=== PATIENT | male | born 1970 | race Caucasian/White ===

== ENCOUNTER 2023-01-22 16:20 | Emergency (ER) | payer OTHER ==
[2023-01-22 16:35] VITALS: BP 138/87
--- NOTE | 2023-01-22 17:12 | XRAY Report ---
PROCEDURE: Chest 2 View X-Ray INDICATIONS: cough TECHNIQUE: 2 views of the chest were acquired. COMPARISON: None. FINDINGS: Surgical changes and devices: None. Lungs and pleura: No pleural effusions or pneumothorax. Lungs are clear. Mediastinum: Mediastinal contours appear normal. Heart size is normal. Bones and chest wall: No suspicious bony lesions. Overlying soft tissues appear unremarkable. IMPRESSION: No acute cardiopulmonary process. Reviewed by: Lisa Ballesteros MD on 01/22/2023 5:10 PM PDT Approved by: Lisa Ballesteros MD on 01/22/2023 5:10 PM PDT Station ID: [id number]
--- NOTE | 2023-01-22 17:44 | ED Physician Documentation ---
History of Present Illness - Stated complaint Stated Complaint: SOA - Chief complaint Chief Complaint: Resp - History obtained from History obtained from: Patient - Additonal information Additional information: 52-year-old gentleman with history of [place] War syndrome, fibromyalgia, and type 2 diabetes presents for evaluation of cough and chest pain. He has been sick for about 10 days. It was not too bad the first few days but now is worse over the last week or so with some shortness of breath and sharp pain to the right of the sternum especially when he coughs. The cough is nonproductive. Has had low-grade fevers with this. Denies pedal edema or calf pain. PD PAST MEDICAL HISTORY - Past Medical History Cardiovascular: None Respiratory: None Endocrine/Autoimmune: Type 2 diabetes GI: GERD : None HEENT: None Derm: None - Past Surgical History Past Surgical History: No - Present Medications Home Medications: Ambulatory Orders Medication Instructions Recorded Confirmed Aripiprazole [Abilify] 10 mg PO DAILY 05/14/13 05/14/13 Buprenorphine HCl/Naloxone HCl 1 each SL 3-4XD 05/14/13 05/14/13 [Suboxone 8 mg-2 mg Tablet Sl] Glipizide [Glipizide ER] 10 mg PO BID 05/14/13 05/14/13 Metformin HCl [Metformin HCl ER] 1,000 mg PO BID 05/14/13 05/14/13 Venlafaxine [Effexor] 300 mg PO DAILY 05/14/13 05/14/13 Albuterol Sulf [Ventolin Hfa 1 - 2 puffs INH Q4HR PRN #1 each 01/22/23 Inhaler] Doxycycline [Vibramycin] 100 mg PO BID #14 tablet 01/22/23 - Allergies Allergies/Adverse Reactions: Allergies Allergy/AdvReac Type Severity Reaction Status Date / Time No Known Drug Allergies Allergy Verified 01/22/23 16:25 - Social History Does the pt smoke?: Yes Smoking Status: Current every day smoker Does the pt drink ETOH?: Yes Does the pt have substance abuse?: No - Immunizations Immunizations are current?: Yes PD ED PE NORMAL - Vitals Vital signs reviewed: Yes - General General: Alert and oriented X 3, No acute distress - HEENT HEENT: PERRL, EOMI - Neck Neck: Supple, no meningeal sign, No bony TTP - Cardiac Cardiac: RRR, No murmur - Respiratory Respiratory: No respiratory distress, Other (Mild expiratory wheezes, nonlabored, speaking in full sentences) - Abdomen Abdomen: Non tender - Back Back: No CVA TTP, No spinal TTP - Derm Derm: Normal color, Warm and dry - Extremities Extremities: No edema, No calf tenderness / cord - Neuro Neuro: Alert and oriented X 3, Normal speech Results - Vitals Vitals: Vital Signs - 24 hr 01/22/23 16:26 Temperature 36.9 C Heart Rate 82 Respiratory 19 Rate Blood Pressure 138/87 H O2 Saturation 100 Oxygen O2 Source Room air - EKG (time done) 1648 EKG releavant findings:: EKG personally interpreted by author of this note. Relevant findings are: Rate: Other (Sinus rhythm with right bundle branch block and very small inferior Q waves. The right bundle branch block is new compared with prior EKG, the small Q waves look like they are probably old.) Computer interpretation: Agree with computer PD Medical Decision Making - ED course ED course: 52-year-old gentleman with bronchitis. No evidence of active heart disease, nothing in the history or physical to suggest dissection, PE, or other more serious cause of chest pain. Departure - Departure Disposition: 01 Home, Self Care Clinical Impression: Bronchitis Condition: Good Record reviewed to determine appropriate education?: Yes Instructions: ED Upper Resp Infec Abx Tx Prescriptions: Albuterol Sulf [Ventolin Hfa Inhaler] 1 - 2 puffs INH Q4HR PRN #1 each PRN Reason: Shortness Of Air/Wheezing Doxycycline [Vibramycin] 100 mg PO BID #14 tablet Comments: Chest x-ray looking normal. Your EKG did show a finding on it called a right bundle branch block. We know this is new in the last 10 years or so and it should definitely be mentioned to your primary care physician, but I do not see how it would be related to your current symptoms. Call your doctor to arrange a follow-up appointment, make the next available appointment. In the interim, return anytime if worse or if new symptoms develop.
== END 2023-01-22 17:59 | disposition home or self-care (01) ==
LOC: ED 16:20
DX: J40 Bronchitis, not specified as acute or chronic (principal); F17.200 Nicotine dependence, unspecified, uncomplicated; E11.9 Type 2 diabetes mellitus without complications; Z79.84 Long term (current) use of oral hypoglycemic drugs; Z79.899 Other long term (current) drug therapy
CPT/HCPCS: 93005; 99283; 99284

== ENCOUNTER 2023-01-27 07:35 | Outpatient (CLI) | payer OTHER ==
[2023-01-27 14:53] LABS: BASOPHILS % (AUTO) 0.3 %; EOSINOPHILS # (AUTO) 0.1 10^3/uL (0.0-0.7); HCT - HEMATOCRIT 45.7 % (42.0-52.0); LYMPHOCYTES # (AUTO) 3.1 10^3/uL (1.5-3.5); LYMPHOCYTES % (AUTO) 40.3 %; MEAN CORPUSCULAR HEMOGLOBIN 27.6 pg (27.0-31.0); MEAN CORPUSCULAR HGB CONC 30.6 g/dL (32.0-36.0); MEAN CORPUSCULAR VOLUME 90.1 fL (80.0-94.0); MEAN PLATELET VOLUME 8.7 fL (7.4-11.4); MONOCYTES # (AUTO) 0.6 10^3/uL (0.0-1.0); MONOCYTES % (AUTO) 7.4 %; NEUTROPHILS # (AUTO) 3.9 10^3/uL (1.5-6.6); NEUTROPHILS % (AUTO) 50.7 %; PLT - PLATELET COUNT 405 10^3/uL (130-450); RED BLOOD COUNT 5.07 10^6/uL (4.70-6.10); WHITE BLOOD COUNT 7.7 x10^3/uL (4.8-10.8)
[2023-01-27 15:36] LABS: ALBUMIN 4.5 g/dL (3.2-5.5); ALBUMIN/GLOBULIN RATIO 1.5 (1.0-2.2); ALKALINE PHOSPHATASE 72 IU/L (42-121); ALT ALANINE AMINOTRANSFERASE 12 IU/L (10-60); AST ASPARTATE AMINOTRANSFERASE 15 IU/L (10-42); BILIRUBIN,TOTAL 0.5 mg/dL (0.2-1.0); BUN - BLOOD UREA NITROGEN 18 mg/dL (6-20); CALCIUM 9.7 mg/dL (8.5-10.3); CARBON DIOXIDE - CO2 31 mmol/L (21-32); CHLORIDE 104 mmol/L (101-111); CHOL/HDL RATIO 3.2 (<5.0); CHOLESTEROL 199 mg/dL; CREATININE 0.8 mg/dL (0.6-1.3); GFR - MDRD 102 (>89); GLUCOSE 212 mg/dL (74-104); HDL CHOLESTEROL 63 mg/dL; LDL CHOLESTEROL,CALCULATED 104 mg/dL; LDL/HDL RATIO 1.7 (<3.6); POTASSIUM 3.9 mmol/L (3.5-4.5); SODIUM 139 mmol/L (135-145); TOTAL PROTEIN 7.5 g/dL (6.4-8.9); TRIGLYCERIDES 159 mg/dL (48-352); VLDL CHOLESTEROL 32 mg/dL
[2023-01-27 16:53] LABS: THYROID STIMULATING HORMONE 0.65 uIU/mL (0.34-5.60)
[2023-01-27 20:09] LABS: ESTIMATED AVERAGE GLUCOSE 148 mg/dL (70-100); HEMOGLOBIN A1c% 6.8 % (4.27-6.07)
== END 2023-01-27 07:36 | disposition home or self-care (01) ==
LOC: LAB.S 07:35
PROVIDERS: ATTEND Nurse Practitioner
DX: I10 Essential (primary) hypertension (principal); E78.5 Hyperlipidemia, unspecified; E11.9 Type 2 diabetes mellitus without complications; Z12.5 Encounter for screening for malignant neoplasm of prostate; R53.83 Other fatigue
CPT/HCPCS: 36415; 80053; 80061; 82043; 82570; 83036; 83721; 84153; 84443; 85025

== ENCOUNTER 2023-05-07 09:06 | Outpatient (CLI) | payer OTHER ==
[2023-05-07 14:42] LABS: BASOPHILS # (AUTO) 0.1 10^3/uL (0.0-0.1); BASOPHILS % (AUTO) 0.8 %; EOSINOPHILS # (AUTO) 0.4 10^3/uL (0.0-0.7); EOSINOPHILS % (AUTO) 5.8 %; HCT - HEMATOCRIT 46.4 % (42.0-52.0); HGB - HEMOGLOBIN 14.2 g/dL (14.0-18.0); LYMPHOCYTES # (AUTO) 2.3 10^3/uL (1.5-3.5); LYMPHOCYTES % (AUTO) 35.1 %; MEAN CORPUSCULAR HGB CONC 30.6 g/dL (32.0-36.0); MEAN CORPUSCULAR VOLUME 91.5 fL (80.0-94.0); MEAN PLATELET VOLUME 8.6 fL (7.4-11.4); MONOCYTES # (AUTO) 0.5 10^3/uL (0.0-1.0); MONOCYTES % (AUTO) 7.9 %; NEUTROPHILS # (AUTO) 3.2 10^3/uL (1.5-6.6); NEUTROPHILS % (AUTO) 50.2 %; PLT - PLATELET COUNT 400 10^3/uL (130-450); RED BLOOD COUNT 5.07 10^6/uL (4.70-6.10); RED CELL DISTRIBUTION WIDTH 12.9 % (12.0-15.0); WHITE BLOOD COUNT 6.4 x10^3/uL (4.8-10.8)
[2023-05-07 15:06] LABS: CREATININE,URINE 113.9 mg/dL; MICROALBUM/CREATININE RATIO,UR 363.5 ug/mg (<30.0); MICROALBUMIN,URINE 41.4 mg/dL
[2023-05-07 15:10] LABS: ALBUMIN 4.4 g/dL (3.2-5.5); ALBUMIN/GLOBULIN RATIO 1.6 (1.0-2.2); ALKALINE PHOSPHATASE 87 IU/L (42-121); ALT ALANINE AMINOTRANSFERASE 16 IU/L (10-60); AMYLASE 54 U/L (28-100); AST ASPARTATE AMINOTRANSFERASE 20 IU/L (10-42); BILIRUBIN,TOTAL 0.3 mg/dL (0.2-1.0); BUN - BLOOD UREA NITROGEN 10 mg/dL (6-20); CALCIUM 9.8 mg/dL (8.5-10.3); CARBON DIOXIDE - CO2 31 mmol/L (21-32); CHLORIDE 107 mmol/L (101-111); CREATININE 0.7 mg/dL (0.6-1.3); CRP - C-REACTIVE PROTEIN < 0.5 mg/dL (<0.5); GFR - MDRD 118 (>89); GLUCOSE 125 mg/dL (74-104); LIPASE 46 U/L (11-82); POTASSIUM 4.8 mmol/L (3.5-4.5); SODIUM 143 mmol/L (135-145); TOTAL PROTEIN 7.2 g/dL (6.4-8.9)
[2023-05-07 15:31] LABS: ESTIMATED AVERAGE GLUCOSE 131 mg/dL (70-100); HEMOGLOBIN A1c% 6.2 % (4.27-6.07)
[2023-05-11 08:10] LABS: HCV RNA QUANTITATION HCV Not Detected IU/mL (.)
== END 2023-05-07 09:07 | disposition home or self-care (01) ==
LOC: LAB.S 09:06
PROVIDERS: ATTEND Nurse Practitioner
DX: R50.9 Fever, unspecified (principal); R10.13 Epigastric pain; E11.9 Type 2 diabetes mellitus without complications; R41.3 Other amnesia; M25.50 Pain in unspecified joint
CPT/HCPCS: 36415; 80053; 81599; 82043; 82150; 82570; 83036; 83690; 84443; 85025; 85651; 86140; 86480; 87522

== ENCOUNTER 2024-02-19 01:04 | Emergency (ER) | payer OTHER ==
[2024-02-19 01:35] LABS: BASOPHILS % (AUTO) 0.3 %; EOSINOPHILS % (AUTO) 0.3 %; HGB - HEMOGLOBIN 13.9 g/dL (14.0-18.0); LYMPHOCYTES # (AUTO) 1.1 10^3/uL (1.5-3.5); LYMPHOCYTES % (AUTO) 9.4 %; MEAN CORPUSCULAR HEMOGLOBIN 28.3 pg (27.0-31.0); MEAN CORPUSCULAR HGB CONC 32.3 g/dL (32.0-36.0); MEAN CORPUSCULAR VOLUME 87.4 fL (80.0-94.0); MEAN PLATELET VOLUME 8.2 fL (7.4-11.4); MONOCYTES # (AUTO) 0.2 10^3/uL (0.0-1.0); MONOCYTES % (AUTO) 1.9 %; NEUTROPHILS # (AUTO) 10.2 10^3/uL (1.5-6.6); NEUTROPHILS % (AUTO) 87.7 %; PLT - PLATELET COUNT 379 10^3/uL (130-450); RED BLOOD COUNT 4.92 10^6/uL (4.70-6.10); WHITE BLOOD COUNT 11.7 x10^3/uL (4.8-10.8)
--- NOTE | 2024-02-19 01:45 | XRAY Report ---
PROCEDURE: Chest 1V INDICATIONS: Chest pain TECHNIQUE: One view of the chest was acquired. COMPARISON: 01/14/2023. FINDINGS: Surgical changes and devices: None. Lungs and pleura: No pleural effusions or pneumothorax. Lungs are clear. Mediastinum: Mediastinal contours appear normal. Heart size is normal. Bones and chest wall: No suspicious bony lesions. Overlying soft tissues appear unremarkable. IMPRESSION: No acute cardiopulmonary process. Reviewed by: Jose Agarwal MD on 02/19/2024 1:43 AM PDT Approved by: Jose Agarwal MD on 02/19/2024 1:43 AM PDT Station ID: [id number]
--- NOTE | 2024-02-19 01:58 | ED Physician Documentation ---
PD HPI CHEST PAIN - Stated complaint Stated Complaint: SOA CHEST PAIN - Chief complaint Chief Complaint: Abd Pain - History obtained from History obtained from: Patient - Additional information Additional information: HPI from patient. Patient complains of nausea without vomiting, chest tightness. The symptoms started earlier today without an inciting event. There are no apparent exacerbating or ameliorating factors. He denies history of similar symptoms. He also notes shortness of breath with dyspnea on exertion over the past few days. Denies fever, cough, leg swelling. He also says he has not had a bowel movement in several days but does not have the urge to defecate. Review of Systems Constitutional: denies: Fever, Chills, Sweats Cardiac: reports: Chest pain / pressure. denies: Palpitations, Pedal edema, Calf pain Respiratory: reports: Dyspnea. denies: Cough, Hemoptysis, Wheezing GI: reports: Nausea. denies: Vomiting PD PAST MEDICAL HISTORY - Past Medical History Past Medical History: Yes Cardiovascular: Hypertension Respiratory: None Endocrine/Autoimmune: Type 2 diabetes GI: GERD : None HEENT: None Derm: None - Past Surgical History Past Surgical History: No - Present Medications Home Medications: Ambulatory Orders Medication Instructions Recorded Confirmed Aripiprazole [Abilify] 10 mg PO DAILY 05/14/13 05/14/13 Buprenorphine HCl/Naloxone HCl 1 each SL 3-4XD 05/14/13 05/14/13 [Suboxone 8 mg-2 mg Tablet Sl] Metformin HCl [Metformin HCl ER] 1,000 mg PO BID 05/14/13 05/14/13 Venlafaxine [Effexor] 300 mg PO DAILY 05/14/13 05/14/13 glipiZIDE [Glipizide ER] 10 mg PO BID 05/14/13 05/14/13 Albuterol Sulf [Ventolin Hfa 1 - 2 puffs INH Q4HR PRN #1 each 01/22/23 Inhaler] Doxycycline [Vibramycin] 100 mg PO BID #14 tablet 01/22/23 Promethazine [Phenergan] 25 mg PO Q6H PRN #10 tab 02/19/24 - Allergies Allergies/Adverse Reactions: Allergies Allergy/AdvReac Type Severity Reaction Status Date / Time No Known Drug Allergies Allergy Verified 02/19/24 01:18 - Social History Does the pt smoke?: Yes Smoking Status: Current every day smoker Does the pt drink ETOH?: Yes Does the pt have substance abuse?: No - Immunizations Immunizations are current?: Yes - POLST Patient has POLST: No PD ED PE NORMAL - Vitals Vital signs reviewed: Yes - General General: Alert and oriented X 3, No acute distress, Well developed/nourished - HEENT HEENT: Other (tacky/pasty mucous membranes) - Cardiac Cardiac: RRR (regular rhythm with frequent extra beats that correlate with PVCs on quality assurance monitor final), No murmur - Respiratory Respiratory: No respiratory distress, Clear bilaterally - Abdomen Abdomen: Normal bowel sounds, Soft, Non tender, Non distended - Back Back: No CVA TTP - Derm Derm: Normal color, Warm and dry Results - Vitals Vitals: Oxygen O2 Source Room air - Labs Labs: Laboratory Tests 02/19/24 02/19/24 02/19/24 01:30 01:30 01:38 WBC 11.7 H RBC 4.92 Hgb 13.9 L Hct 43.0 MCV 87.4 MCH 28.3 MCHC 32.3 RDW 13.0 Plt Count 379 MPV 8.2 Neut # (Auto) 10.2 H Lymph # (Auto) 1.1 L Osborne # (Auto) 0.2 Eos # (Auto) 0.0 Baso # (Auto) 0.0 Absolute Nucleated RBC 0.00 Nucleated RBC % 0.0 VBG pH VBG pCO2 VBG pO2 VBG HCO3 VBG Total CO2 VBG O2 Saturation VBG Base Excess Sodium 136 Potassium 4.4 Chloride 102 Carbon Dioxide 23 Anion Gap 11.0 BUN 18 Creatinine 0.8 Estimated GFR (MDRD) 101 Glucose 327 H Calcium 9.7 Total Bilirubin 0.4 AST 10 ALT 10 Alkaline Phosphatase 83 Troponin I High Sens 3.1 Total Protein 7.4 Albumin 4.5 Globulin 2.9 Albumin/Globulin Ratio 1.6 Lipase 47 Urine Color YELLOW Urine Clarity CLEAR Urine pH 6.0 Ur Specific Shanks 1.010 Urine Protein NEGATIVE Urine Glucose (UA) >=1000 H Urine Ketones 15 H Urine Occult Blood NEGATIVE Urine Nitrite NEGATIVE Urine Bilirubin NEGATIVE Urine Urobilinogen 0.2 (NORMAL) Ur Leukocyte Esterase NEGATIVE Ur Microscopic Review NOT INDICATED Urine Culture Comments NOT INDICATED Serum Ketones 02/19/24 02/19/24 04:14 04:14 WBC RBC Hgb Hct MCV MCH MCHC RDW Plt Count MPV Neut # (Auto) Lymph # (Auto) Osborne # (Auto) Eos # (Auto) Baso # (Auto) Absolute Nucleated RBC Nucleated RBC % VBG pH 7.377 VBG pCO2 38.8 L VBG pO2 45.1 VBG HCO3 22.3 L VBG Total CO2 23.5 L VBG O2 Saturation 81.3 H VBG Base Excess -2.5 L Sodium Potassium Chloride Carbon Dioxide Anion Gap BUN Creatinine Estimated GFR (MDRD) Glucose Calcium Total Bilirubin AST ALT Alkaline Phosphatase Troponin I High Sens Total Protein Albumin Globulin Albumin/Globulin Ratio Lipase Urine Color Urine Clarity Urine pH Ur Specific Shanks Urine Protein Urine Glucose (UA) Urine Ketones Urine Occult Blood Urine Nitrite Urine Bilirubin Urine Urobilinogen Ur Leukocyte Esterase Ur Microscopic Review Urine Culture Comments Serum Ketones NEGATIVE - Rads (name of study) chest xray Relevant Findings:: Prelim report reviewed, See rad report CTA chest Relevant Findings:: Prelim report reviewed, See rad report CT A/P with IV contrast Relevant Findings:: Prelim report reviewed, See rad report PD Medical Decision Making - ED course Complexity details: reviewed results, re-evaluated patient, considered differential, d/w patient ED course: No concerning nor diagnostic findings on blood tests, urinalysis, CT A/P, CTA chest. The only exception is gallbladder dilatation on CT A/P but without any findings to suggest gallstones or inflammation. The right upper quadrant is where he is most tender on abdominal exam and thus will be held until an ultrasound can be performed later this morning. Once that is undertaken, he will be discharged as long as there are no concerning/emergent findings on this study and his symptoms are adequately controlled. During his ED stay, he is given 2 L normal saline IV, 8 mg IV Zofran, 25 mg IV Phenergan, 2.5 mg IV droperidol, and 40mg IV protonix. Late in his stay, he is given 6 mg IV morphine. On multiple reevaluations, he is increasingly drowsy although consistently awakens easily to voice. He is frequently moaning on expiration on initial and on most of the reevaluations, but each time I ask if he is having pain, he is indicating to me that is the nausea that is making him do this. Initially did not seem to have any abdominal tenderness on exam, but, later in stay, he began to exhibit TTP without rebound or guarding, mostly in the right upper quadrant and thus the CT A/P and, ventrally, the right upper quadrant ultrasound are undertaken. Departure - Departure Disposition: 01 Home, Self Care Clinical Impression: Abdominal pain Qualifiers: Abdominal location: generalized Qualified Code(s): R10.84 - Generalized abdominal pain Condition: Good Instructions: ED Chest Pain Atypical Unkn Cause, ED Abdominal Pain Unkn Cause Male Prescriptions: Promethazine [Phenergan] 25 mg PO Q6H PRN #10 tab PRN Reason: Nausea / Vomiting Comments: There were no concerning nor diagnostic findings on tonight's test, including the blood tests, CT scans of your chest and abdomen, and the abdominal ultrasound. As we discussed, your blood sugar was significantly elevated above the normal range, but this improved after you were given 8 units of IV insulin. This is an incidental finding. The cause of your symptoms is not apparent at this time. Contact your primary care provider in the office next open to arrange for the next available appointment for follow-up/reevaluation. You should do this even if your symptoms do not recur. I have electronically submitted a prescription for phenergan (antinausea medication) to the [facility] pharmacy in [place]. Discharge Date/Time: 02/19/24 08:11
[2024-02-19 02:00] LABS: ALBUMIN 4.5 g/dL (3.2-5.5); ALBUMIN/GLOBULIN RATIO 1.6 (1.0-2.2); BILIRUBIN,TOTAL 0.4 mg/dL (0.2-1.0); CALCIUM 9.7 mg/dL (8.5-10.3); CREATININE 0.8 mg/dL (0.6-1.3); POTASSIUM 4.4 mmol/L (3.5-4.5); TOTAL PROTEIN 7.4 g/dL (6.4-8.9)
[2024-02-19 02:02] LABS: BILIRUBIN,URINE NEGATIVE (NEGATIVE); GLUCOSE, URINE (UA) >=1000 mg/dL (NEGATIVE); KETONES,URINE (UA) 15 mg/dL (NEGATIVE); LEUKOCYTE ESTERASE, URINE NEGATIVE (NEGATIVE); NITRITE,URINE NEGATIVE (NEGATIVE); OCCULT BLOOD,URINE NEGATIVE (NEGATIVE); PROTEIN,URINE NEGATIVE (NEGATIVE); UROBILINOGEN,URINE 0.2 (NORMAL) E.U./dL (NORMAL)
[2024-02-19 02:05] LABS: CLARITY,URINE CLEAR (CLEAR)
[2024-02-19 02:16] LABS: TROPONIN I HIGH SENSITIVITY 3.1 ng/L (2.3-19.7)
[2024-02-19] MEDS ORDERED: iohexoL-300 100 ML VIAL ONE ×2 (02:38→04:07)
[2024-02-19] MEDS: PANTOPRAZOLE 40 MG VIAL IVP STA (02:41)
[2024-02-19] MEDS: ONDANSETRON 4 MG/2 ML VIAL IVP STA (02:41)
[2024-02-19] MEDS: iohexoL-300 100 ML VIAL IVP ONE (02:55)
[2024-02-19] MEDS: INSULIN REGULAR, HUMAN 300 UNIT/3 ML PEN IVP STA (03:24)
[2024-02-19] MEDS: SODIUM CHLORIDE 0.9% 1,000 ML IV STA ×2 (03:25→04:22)
[2024-02-19] MEDS: PROMETHAZINE INJ 25 MG in SODIUM CHLORIDE 0.9% 50 ML IV STA (03:40)
[2024-02-19] MEDS ORDERED: PROMETHAZINE 25 MG/1 ML VIAL ONE (03:40)
[2024-02-19 04:20] LABS: VBG BASE EXCESS -2.5 mmol/L (-2 - +2); VBG HCO3 22.3 mmol/L (23-28); VBG OXYGEN SATURATION 81.3 % (60-80); VBG PCO2 38.8 mmHg (41-51); VBG PH 7.377 (7.31-7.41); VBG PO2 45.1 mmHg (25-47); VBG TOTAL CO2 23.5 mmol/L (24-29)
[2024-02-19] MEDS: MORPHINE 2 MG/ML CARPUJECT IVP STA (04:22)
[2024-02-19] MEDS: DROPERIDOL 5 MG/2 ML VIAL IVP STA (06:12)
[2024-02-19 06:13] VITALS: O2SAT 99
[2024-02-19 08:07] VITALS: BP 163/91
--- NOTE | 2024-02-19 08:14 | ED Physician Documentation ---
ED Addendum - Addendum Addendum: 02/19/24 08:13 Patient signed out to me awaiting ultrasound report. Ultrasound does not show any evidence of acute abnormalities. Patient will be discharged as planned by Dr. Toro. Departure - Departure Disposition: 01 Home, Self Care Clinical Impression: Abdominal pain Qualifiers: Abdominal location: generalized Qualified Code(s): R10.84 - Generalized abdominal pain Condition: Good Instructions: ED Chest Pain Atypical Unkn Cause, ED Abdominal Pain Unkn Cause Male Prescriptions: Promethazine [Phenergan] 25 mg PO Q6H PRN #10 tab PRN Reason: Nausea / Vomiting Comments: There were no concerning nor diagnostic findings on tonight's test, including the blood tests, CT scans of your chest and abdomen, and the abdominal ultrasound. As we discussed, your blood sugar was significantly elevated above the normal range, but this improved after you were given 8 units of IV insulin. This is an incidental finding. The cause of your symptoms is not apparent at this time. Contact your primary care provider in the office next open to arrange for the next available appointment for follow-up/reevaluation. You should do this even if your symptoms do not recur. I have electronically submitted a prescription for phenergan (antinausea medication) to the [facility] in [place]. Discharge Date/Time: 02/19/24 08:11
--- NOTE | 2024-02-19 09:06 | Ultrasound Report ---
PROCEDURE: Abdomen Limited INDICATIONS: abd. pain TECHNIQUE: Real-time focused scanning was performed of the abdomen, with image documentation. COMPARISONS: Correlation is made with the accompanying imaging. FINDINGS: Liver: The liver demonstrates mildly enlarged size. The liver demonstrates mildly increased echogeni city, which limits ultrasound sensitivity for detection of masses. Gallbladder: No gallstones, sludge, wall thickening or pericholecystic edema. Biliary ducts: Intrahepatic bile ducts are non-dilated. Extrahepatic bile duct caliber measures 2 m m. Normal is 6-7 mm or less in diameter, or 10 mm or less post-cholecystectomy. Pancreas: Visualized portions of the pancreas are sonographically normal. Right kidney: Normal in size and echotexture. Right kidney measures 11 cm long. No hydronephrosis or nephrolithiasis. No solid masses. No complex renal cystic lesions which require follow-up. IVC: Intrahepatic inferior vena cava is patent. Miscellaneous: No free abdominal fluid. IMPRESSION: The gallbladder demonstrates a normal sonographic appearance. No biliary dilatation is seen. Mild fatty infiltration of the liver. Note: Concordant preliminary findings given by the roundsman upon the completion of the examination to Dr. Lynn at 8:00 AM on 02/19/2024 Reviewed by: Esteban Ferro MD on 02/19/2024 8:05 AM TOBIAS Approved by: Esteban Ferro MD on 02/19/2024 8:05 AM TOBIAS Station ID: [id number]
--- NOTE | 2024-02-19 10:24 | CT Report ---
PROCEDURE: Angio Chest INDICATIONS: chest pain CONTRAST: 80ml [id number] TECHNIQUE: After the administration of intravenous contrast, 2 mm axial images were acquired from the pulmonary apices to the posterior costophrenic angles during the arterial phase. In addition, 1 mm lung kernel and 5 mm soft tissue kernel reconstructions were performed. 3-dimensional coronal oblique maximum int ensity projection (MIP) reformats, 8 mm axial MIP, and 5 mm coronal and sagittal MPR reformats were t hen performed through the thorax. For radiation dose reduction, the following was used: automated exp osure control, adjustment of mA and/or kV according to patient size. COMPARISON: Correlation is made with the accompanying imaging. FINDINGS: Image quality: Excellent. Large vessels: No filling defects within the opacified pulmonary arteries, accounting for motion and contrast timing. No evidence of acute aortic syndrome or aortic aneurysm. Lungs and pleura: No consolidation. No pleural effusions. No pneumothorax. No suspicious pulmonary n odules which require follow up. Mediastinum: Heart size is normal. No pericardial effusion. No large vessel abnormality. No mediastin al adenopathy by size criteria. Chest wall and lower neck: Thyroid is unremarkable. No axillary or supraclavicular adenopathy by size . Bones: No aggressive osseous abnormality. There is a chronic, remote T6 compression deformity, with r emodeling change. Upper Abdomen: Please see the accompanying CT report. IMPRESSION: No pulmonary embolus. No significant pulmonary abnormality is seen. Additional findings: Remote T6 compression deformity Note: No significant discrepancy from the preliminary report. Reviewed by: Esteban Ferro MD on 02/19/2024 9:22 AM TOBIAS Approved by: Esteban Ferro MD on 02/19/2024 9:22 AM TOBIAS Station ID: [id number]
--- NOTE | 2024-02-19 10:52 | CT Report ---
PROCEDURE: Abdomen/Pelvis W INDICATIONS: abd. pain CONTRAST: 100ml [id number] TECHNIQUE: After the administration of intravenous contrast, a CT scan of the abdomen and pelvis was performed. Images were recorded and evaluated at appropriate window settings. Reformats: coronal and sagittal. F or radiation dose reduction, the following was used: automated exposure control, adjustment of mA and /or kV according to patient size. COMPARISON: Correlation is made with the accompanying imaging. FINDINGS: Image quality: Diagnostic. Lower chest: Unremarkable. Liver: No solid mass. Diffuse fatty liver infiltration can be seen. Gallbladder: The gallbladder is mildly prominent in size. No additional CT findings of cholecystitis are seen. Biliary tree: No intrahepatic or extrahepatic dilation, accounting for age. Spleen: No splenomegaly. Pancreas: No pancreatic ductal dilation. Adrenals: No adrenal nodule. Kidneys and ureters: No hydronephrosis. No renal cystic lesion which requires follow up. No solid mas s. Stomach, bowel and peritoneum: Moderate wall thickening can be seen through it out the majority of th e colon, particularly involving the distal descending colon and the sigmoid colon. No dilated loops of small bowel are seen. No pathologic free fluid. A normal appendix is seen. Lymph nodes: No central or retroperitoneal adenopathy. Vessels: No infrarenal aortic aneurysm. Patent portal vein. 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 PELVIS Reproductive organs: Unremarkable. Bladder: No abnormal wall thickening, accounting for underdistention. Pelvic lymph nodes: No pelvic adenopathy by size criteria. Bones: No aggressive osseous abnormality. There is focal L4-L5 degenerative change. Grade 1 L5-S1 anterolisthesis is seen, with associated bilateral L5 pars defects Milder degenerative changes are seen elsewhere. Other: No significant ventral or inguinal hernia. IMPRESSION: Generalized colonic wall thickening can be seen. Please correlate with potential infectious and infla mmatory causes of colitis. No findings of perforation or abscess can be seen. The gallbladder is prominent in size, yet without focal abnormality. Normal appendix. Additional findings: Diffuse fatty liver infiltration Duplicated IVC Focal L4-L5 degenerative change Bilateral L5 pars defects, grade 1 L5-S1 anterolisthesis Note: This case (including difference between this final report and the preliminary report) discussed by telephone with Dr. Lynn at 10:49 AM [place] time on 02/19/2024. Reviewed by: Esteban Ferro MD on 02/19/2024 9:51 AM AKDT Approved by: Esteban Ferro MD on 02/19/2024 9:51 AM TOBIAS Station ID: [id number]
== END 2024-02-19 08:11 | disposition home or self-care (01) ==
LOC: ED 01:04
DX: R10.84 Generalized abdominal pain (principal); I10 Essential (primary) hypertension; E11.9 Type 2 diabetes mellitus without complications; F17.200 Nicotine dependence, unspecified, uncomplicated; Z79.899 Other long term (current) drug therapy; Z79.84 Long term (current) use of oral hypoglycemic drugs
CPT/HCPCS: 36415; 71045; 71275; 74177; 76705; 80053; 81003; 82009; 82803; 83690; 84484; 85025; 93005; 96365; 96375; 99284; J7040; Q9967; 81001; 87086